=== PATIENT | female | born 1955 | race Caucasian/White ===

== ENCOUNTER → 2016-03-21 | Outpatient (CLI) | payer OTHER ==
[~2016-03-21] MED LIST: ACETAMINOPHEN W1 TA6 PO; ADVIL200 MG PO; NO HOME MEDICATIONS; PREDNISONE20 MG PO; ZITHROMAX 250M250 MG PO
== END ==
LOC: MC.RAD 16:34
DX: Z12.31 Encounter for screening mammogram for malignant neoplasm of breast (principal)

== ENCOUNTER → 2016-05-02 | Outpatient (CLI) | payer OTHER | LOC: COL.RAD 10:22 | DX: M25.571 Pain in right ankle and joints of right foot (principal); R22.41 Localized swelling, mass and lump, right lower limb; M77.51 Other enthesopathy of right foot and ankle; M72.2 Plantar fascial fibromatosis; M76.61 Achilles tendinitis, right leg; M67.471 Ganglion, right ankle and foot; M62.571 Muscle wasting and atrophy, not elsewhere classified, right ankle and foot ==

== ENCOUNTER → 2016-12-01 | Outpatient (CLI) | payer OTHER | LOC: COL.RAD 12:48 | DX: K80.20 Calculus of gallbladder without cholecystitis without obstruction (principal); K44.9 Diaphragmatic hernia without obstruction or gangrene; K59.00 Constipation, unspecified; M47.816 Spondylosis without myelopathy or radiculopathy, lumbar region; M41.86 Other forms of scoliosis, lumbar region ==

== ENCOUNTER → 2017-03-23 | Outpatient (CLI) | payer OTHER | LOC: MC.RAD 03-22 17:00 | DX: Z12.31 Encounter for screening mammogram for malignant neoplasm of breast (principal) ==

== ENCOUNTER → 2018-04-01 | Outpatient (CLI) | payer OTHER | LOC: MC.RAD 07:38 | DX: Z12.31 Encounter for screening mammogram for malignant neoplasm of breast (principal) ==

== ENCOUNTER → 2019-04-03 | Outpatient (CLI) | payer OTHER | LOC: MC.RAD 07:29 | DX: Z12.31 Encounter for screening mammogram for malignant neoplasm of breast (principal); R92.0 Mammographic microcalcification found on diagnostic imaging of breast ==

== ENCOUNTER → 2019-04-08 | Outpatient (CLI) | payer OTHER | LOC: MC.RAD 13:24 | DX: R92.0 Mammographic microcalcification found on diagnostic imaging of breast (principal) ==

== ENCOUNTER 2019-08-01 06:54 | Outpatient (CLI) | payer OTHER ==
[~2019-08-01] VITALS: Ht 175.4 cm; Wt 105.8 kg
[2019-08-01 07:39] LABS: HEMOGLOBIN 12.4 g/dl (12.5-16.0); MEAN CELL VOLUME 94 fl (80.0-100.0); MEAN CORPUSCULAR HEMOGLOBIN 31 pg (27.0-31.0); MEAN CORPUSCULAR HGB CONC 33 g/dl (33.0-37.0); PLATELET COUNT 183 K/mm3 (130-400); RED BLOOD COUNT 4.05 M/mm3 (4.10-5.30); REDCELL DISTRIBUTION WIDTH-CV 12.8 % (11.5-14.5)
[2019-08-01 07:44] LABS: PROTHROMBIN TIME 11.5 SECONDS (9.7-12.8)
[2019-08-01 07:51] LABS: CALCIUM 9.4 mg/dL (8.4-10.2); CREATININE, serum 0.72 (0.52-1.25); POTASSIUM 4.1 mmol/L (3.4-5.0)
[2019-08-01] MEDS ORDERED: GLUCOPHAGE500 MG/TAB PO (07:51)
[2019-08-01] MEDS ORDERED: OZEMPIC0.25 MG/0. SQ (07:56)
[2019-08-01] MEDS ORDERED: PRAVACHOL 20MG20 MG PO (07:57)
--- NOTE | 2019-08-01 08:03 | NUR ---
pt ready for procedure
[2019-08-01 08:06] VITALS: BP 137/81; PULSE 99; TEMP 98.2
[2019-08-01 09:45] VITALS: BP 118/77; PULSE 107; TEMP 98.2
--- NOTE | 2019-08-01 09:45 | NUR ---
Report from Berna PARKER. Pt resting in bed respnds when spoken to. VSS
[2019-08-01 10:00] VITALS: BP 125/78; PULSE 102; TEMP 98.2
[2019-08-01 10:15] VITALS: BP 130/80; PULSE 100; TEMP 98.2
[2019-08-01 10:30] VITALS: BP 128/78; PULSE 104; TEMP 98.2
[2019-08-01 11:00] VITALS: BP 121/86; PULSE 102; TEMP 98.2
--- NOTE | 2019-08-01 11:00 | NUR ---
INT discontinued intact
--- NOTE | 2019-08-01 11:14 | NUR ---
Discharge instructions given. Pt calling ride
== END 2019-08-01 11:41 | disposition home or self-care (01) ==
LOC: COL.RAD 06:54
PROVIDERS: Internal Medicine Cardiovascular Disease
DX: Q51.3 Bicornate uterus (principal); I35.0 Nonrheumatic aortic (valve) stenosis; Z20.828 Contact with and (suspected) exposure to other viral communicable diseases
CPT/HCPCS: J2704

== ENCOUNTER → 2019-10-27 | Outpatient (CLI) | payer OTHER ==
[~2019-10-27] MED LIST changes: +GLUCOPHAGE500 MG/TAB PO; +OZEMPIC0.25 MG/0. SQ; +PRAVACHOL 20MG20 MG PO
== END ==
LOC: MC.RAD 07:55
DX: R92.0 Mammographic microcalcification found on diagnostic imaging of breast (principal)

== ENCOUNTER → 2019-10-29 | Outpatient (CLI) | payer OTHER | LOC: MC.RAD 07:00 | DX: R92.0 Mammographic microcalcification found on diagnostic imaging of breast (principal) | CPT/HCPCS: 30634 ==

== ENCOUNTER → 2020-07-13 | Outpatient (CLI) | payer OTHER ==
[~2020-07-13] MED LIST changes: +ASPIRIN E.C. 8181 MG PO; +ULTRAM 50MG TAB50 MG PO; +ZESTRIL 10MG10 MG PO
== END ==
LOC: COL.RAD 12:49
DX: R10.11 Right upper quadrant pain (principal)
CPT/HCPCS: Q9967

== ENCOUNTER 2020-08-05 08:26 | Day surgery (SDC) | payer OTHER ==
[2020-08-05] VITALS (8 sets, daily range): BP systolic 117–164; BP diastolic 63–76; PULSE 92–100; TEMP 97.3–98.1
[~2020-08-05] VITALS: Ht 170.2 cm; Wt 100.6 kg
[~2020-08-05 08:26] MED LIST changes: -ASPIRIN E.C. 8181 MG PO; -ULTRAM 50MG TAB50 MG PO; -ZESTRIL 10MG10 MG PO
[2020-08-05 09:29] LABS: BASO % 0.8 % (0.0-2.0); EOS # 0.1 (0.0-0.7); EOS % 2.1 % (0-4.0); GRAN # 2.6 (1.4-6.5); HEMOGLOBIN 12.4 g/dl (12.5-16.0); LYMPH # 1.7 (1.2-3.4); MEAN CELL VOLUME 94 fl (80.0-100.0); MEAN CORPUSCULAR HEMOGLOBIN 30 pg (27.0-31.0); MEAN CORPUSCULAR HGB CONC 32 g/dl (33.0-37.0); MEAN PLATELET VOLUME 11.3 fl (7.4-10.4); MONO # 0.4 (0.1-0.6); MONO % 7.7 % (1.7-9.3); PLATELET COUNT 232 K/mm3 (130-400); RED BLOOD COUNT 4.15 M/mm3 (4.10-5.30); REDCELL DISTRIBUTION WIDTH-CV 13.3 % (11.5-14.5)
[2020-08-05 09:43] LABS: ALBUMIN 4.2 gm/dL (3.5-5.0); BILIRUBIN,TOTAL 0.7 mg/dL (0.0-1.0); CALCIUM 9.7 mg/dL (8.4-10.2); CREATININE, serum 0.72 (0.52-1.25); POTASSIUM 4.5 mmol/L (3.4-5.0); TOTAL PROTEIN 7.5 gm/dL (6.4-8.2)
[2020-08-05] MEDS ORDERED: ZESTRIL 10MG10 MG PO (09:44)
--- NOTE | 2020-08-05 09:46 | NUR ---
TO RM AT 0901- CALL LIGHT IN REACH SISTER AT BEDSIDE.
[2020-08-05] MEDS ORDERED: ULTRAM 50MG TAB50 MG PO (11:42)
--- NOTE | 2020-08-05 12:40 | NUR ---
TO RM 1 PER CART FROM PACU. OPENS EYES AND FALLS BACK TO SLEEP. NO SIGNS OF PAIN SKIN ADHESIVE INTACT OVER INCISION SITES.
--- NOTE | 2020-08-05 12:55 | NUR ---
CONTINUES TO SLEEP QUIETLY. SISTER AT BEDSIDE.
--- NOTE | 2020-08-05 13:00 | NUR ---
CONTINUES TO SLEEP QUIETLY
--- NOTE | 2020-08-05 13:45 | NUR ---
MORE AWAKE AND TALKING TO STAFF. C/O PAIN 4-5 RECEIVED SPRITE AND TAKING SIPS.
--- NOTE | 2020-08-05 14:30 | NUR ---
RECEIVED CRACKERS. C/O PAIN 07/15
--- NOTE | 2020-08-05 15:20 | NUR ---
RECEIVED NORCO 1 TAB PER C/O PAIN.
--- NOTE | 2020-08-05 15:30 | NUR ---
AMBULATED TO BATHROOM. VOIDED AND AMBULATED BACK TO . UPON WALKING BACK TO PATIENT BECAME NAUSEATED AND PALE. RECEIVED COOL WASH CLOTHE AND LAYED DOWN.
--- NOTE | 2020-08-05 15:48 | NUR ---
PATIENT STATED SHE WAS FEELING SOME BETTER AND COLOR MORE PINK. DISCONTINUED IV AND INT- CATHETER INTACT. RECEIVED DISCHARGE INSTRUCTIONS AND SISTER IS GOING TO HELP HER GET DRESSED.
--- NOTE | 2020-08-05 16:00 | NUR ---
DRESSED AND SITTING ON SIDE OF BED, PATIENT STATED SHE FELT LIGHT HEADED. LAYED PATIENT BACK TO REST A LITTLE LONGER.
--- NOTE | 2020-08-05 16:37 | NUR ---
DISCHARGED PER WC BY NURSING STAFF TO PRIVATE CAR IN CARE OF SISTER ROSALBA.
== END 2020-08-05 16:37 | disposition home or self-care (01) ==
LOC: SDCO 08:26
PROVIDERS: Surgery
DX: K80.12 Calculus of gallbladder with acute and chronic cholecystitis without obstruction (principal); E11.9 Type 2 diabetes mellitus without complications; I10 Essential (primary) hypertension; I35.0 Nonrheumatic aortic (valve) stenosis; I70.0 Atherosclerosis of aorta; M17.0 Bilateral primary osteoarthritis of knee; E78.5 Hyperlipidemia, unspecified; M19.90 Unspecified osteoarthritis, unspecified site; Z20.822 Contact with and (suspected) exposure to COVID-19; Z80.0 Family history of malignant neoplasm of digestive organs; Z79.84 Long term (current) use of oral hypoglycemic drugs; Z79.899 Other long term (current) drug therapy; Z79.1 Long term (current) use of non-steroidal anti-inflammatories (NSAID)
CPT/HCPCS: J0690; J1170; J2405; J2704; J3010; J7120

== ENCOUNTER 2020-10-18 09:27 | Day surgery (SDC) | payer OTHER ==
[2020-10-18] VITALS (9 sets, daily range): BP systolic 108–132; BP diastolic 61–83; PULSE 92–98; TEMP 98.4
[~2020-10-18] VITALS: Ht 170.2 cm; Wt 97.3 kg
[~2020-10-18 09:27] MED LIST changes: +ULTRAM 50MG TAB50 MG PO; +ZESTRIL 10MG10 MG PO
[2020-10-18] MEDS ORDERED: ASPIRIN E.C. 8181 MG PO (10:04)
[2020-10-18 10:28] LABS: HEMATOCRIT 37.6 % (37.0-47.0); HEMOGLOBIN 12.6 g/dl (12.5-16.0); MEAN CELL VOLUME 92 fl (80.0-100.0); MEAN CORPUSCULAR HEMOGLOBIN 31 pg (27.0-31.0); MEAN CORPUSCULAR HGB CONC 34 g/dl (33.0-37.0); MEAN PLATELET VOLUME 11.3 fl (7.4-10.4); PLATELET COUNT 185 K/mm3 (130-400); RED BLOOD COUNT 4.11 M/mm3 (4.10-5.30); REDCELL DISTRIBUTION WIDTH-CV 13.3 % (11.5-14.5)
[2020-10-18 10:32] LABS: PARTIAL THROMBOPLASTIN TIME 29.7 SECONDS (26.0-37.0)
[2020-10-18 10:44] LABS: CALCIUM 9.2 mg/dL (8.4-10.2); CREATININE, serum 0.81 (0.52-1.25)
--- NOTE | 2020-10-18 12:23 | NUR ---
pt back from earthmoving labourer, she is awake and alert, tr band to rt wrist, cms intact distal. NSR on monitor. pt and sister updated on poc, lunch ordered. call light in reach.
--- NOTE | 2020-10-18 16:00 | NUR ---
PT ready for departure at this time. TR band has been deflated with no problem. CMS remains intact distal. site dressed with bandaid, iv was dc'd with cath intact, dressing applied. I reviewed dc/rx and fu instructions with patient, she verbalized understanding. to exit via wheelchair at 1600
== END 2020-10-18 17:14 | disposition home or self-care (01) ==
LOC: COL.CAR 09:27
PROVIDERS: Internal Medicine Cardiovascular Disease
DX: I08.3 Combined rheumatic disorders of mitral, aortic and tricuspid valves (principal); I77.89 Other specified disorders of arteries and arterioles; Q23.1 Congenital insufficiency of aortic valve; E78.5 Hyperlipidemia, unspecified; E11.9 Type 2 diabetes mellitus without complications; K21.9 Gastro-esophageal reflux disease without esophagitis; I10 Essential (primary) hypertension; Z20.822 Contact with and (suspected) exposure to COVID-19; Z79.82 Long term (current) use of aspirin; Z79.899 Other long term (current) drug therapy; Z79.84 Long term (current) use of oral hypoglycemic drugs
CPT/HCPCS: C1769; J1644; J2250; J3010; J7030; Q9967

== ENCOUNTER → 2020-11-17 | Outpatient (CLI) | payer OTHER ==
[~2020-11-17] MED LIST changes: +ASPIRIN E.C. 8181 MG PO
== END ==
LOC: MC.RAD 08:03
DX: Z12.31 Encounter for screening mammogram for malignant neoplasm of breast (principal)

== ENCOUNTER → 2020-12-06 | Outpatient (CLI) | payer OTHER | LOC: COL.LAB 09:26 | DX: Z20.822 Contact with and (suspected) exposure to COVID-19 (principal) ==

== ENCOUNTER → 2021-01-06 | Outpatient (CLI) | payer OTHER | LOC: ZCOL.LAB 10:00 | DX: Z20.822 Contact with and (suspected) exposure to COVID-19 (principal) ==

== ENCOUNTER 2021-02-11 13:31 | Outpatient (RCR) | payer OTHER | END 2021-02-11 13:35 | disposition home or self-care (01) | LOC: COL.CR 13:31 | DX: Z48.812 Encounter for surgical aftercare following surgery on the circulatory system (principal); Z95.2 Presence of prosthetic heart valve ==

== ENCOUNTER → 2021-12-08 | Outpatient (CLI) | payer OTHER | LOC: COL.RAD 14:17 | DX: R91.1 Solitary pulmonary nodule (principal) | CPT/HCPCS: Q9967 ==

== ENCOUNTER → 2022-12-07 | Outpatient (CLI) | payer OTHER | LOC: CANSCHCLI → MC.RAD 16:42 | DX: Z12.31 Encounter for screening mammogram for malignant neoplasm of breast (principal) ==